=== PATIENT | female | born 1945 | race Two or more races ===

== ENCOUNTER 2024-12-27 07:58 | Outpatient (CLI) | payer OTHER | END 2024-12-27 08:01 | disposition home or self-care (01) | LOC: TOM 07:58 | DX: M47.892 Other spondylosis, cervical region (principal); M47.894 Other spondylosis, thoracic region; M47.896 Other spondylosis, lumbar region; I63.40 Cerebral infarction due to embolism of unspecified cerebral artery ==

== ENCOUNTER 2025-01-02 08:40 | Outpatient (CLI) | payer OTHER | END 2025-01-02 08:45 | disposition home or self-care (01) | LOC: RAD 08:40 | PROVIDERS: ATTEND Specialist | DX: S93.401A Sprain of unspecified ligament of right ankle, initial encounter (principal); S93.402A Sprain of unspecified ligament of left ankle, initial encounter ==